=== PATIENT | female | born 1945 | race Two or more races ===

== ENCOUNTER 2019-04-26 09:55 | Outpatient (CLI) | payer MEDICARE, MEDICAID | END 2019-04-26 23:59 | disposition home or self-care (01) | LOC: WOU 09:55 | PROVIDERS: ATTEND Podiatrist Foot & Ankle Surgery | DX: E11.42 Type 2 diabetes mellitus with diabetic polyneuropathy (principal); Z79.84 Long term (current) use of oral hypoglycemic drugs; M20.12 Hallux valgus (acquired), left foot; B35.1 Tinea unguium; I10 Essential (primary) hypertension | CPT/HCPCS: G0463 ==

== ENCOUNTER 2019-04-27 09:53 | Outpatient (CLI) | payer MEDICARE, MEDICAID | END 2019-04-27 23:59 | disposition home or self-care (01) | LOC: RAD 09:53 | PROVIDERS: ATTEND Podiatrist Foot & Ankle Surgery | DX: M77.31 Calcaneal spur, right foot (principal); M79.672 Pain in left foot | CPT/HCPCS: 73630-TC ==

== ENCOUNTER 2019-05-03 09:50 | Outpatient (CLI) | payer MEDICARE, MEDICAID | END 2019-05-03 23:59 | disposition home or self-care (01) | LOC: WOU 09:50 | PROVIDERS: ATTEND Podiatrist Foot & Ankle Surgery | DX: E11.42 Type 2 diabetes mellitus with diabetic polyneuropathy (principal); Z79.84 Long term (current) use of oral hypoglycemic drugs; M77.32 Calcaneal spur, left foot; M77.31 Calcaneal spur, right foot; M20.12 Hallux valgus (acquired), left foot; B35.1 Tinea unguium; M79.672 Pain in left foot; M79.671 Pain in right foot | CPT/HCPCS: G0463 ==